=== PATIENT | female | born 1940 | race Caucasian/White ===

== ENCOUNTER 2018-12-15 22:36 | Emergency (ER) | payer OTHER ==
--- NOTE | 2018-12-15 22:43 | EDPHY ---
H & P Time Seen by Provider: 12/15/18 22:43 HPI/ROS: HPI CHIEF COMPLAINT: Right Nare epistaxis HISTORY OF PRESENT ILLNESS: Otherwise healthy 78-year-old female she presents emergency room epistaxis. This started 2-3 hours ago. She started having nose bleed due to digital trauma. Unable to get her nosebleed stopped. She is not on any anticoagulation. Denies any significant complaints. Past Medical History: Denies significant medical history Past Surgical History: Denies significant surgical history Social History: Denies daily use of drugs alcohol tobacco. Family History: Noncontributory ROS REVIEW OF SYSTEMS: 10 Systems were reviewed and negative with the exception of the elements mentioned in the history of present illness. Exam Constitutional triage nursing summary reviewed, vital signs reviewed, awake/ alert. Eyes normal conjunctivae and sclera, EOMI, PERRLA. HENT right Nare: Anterior nose bleed present. Venous. Left nare minimal dry blood. Posterior pharynx unremarkable. normal inspection, atraumatic, moist mucus membranes, no epistaxis, neck supple/ no meningismus, no raccoon eyes. Respiratory clear to auscultation bilaterally, normal breath sounds, no respiratory distress, no wheezing. Cardiovascular rate normal, regular rhythm, no murmur, no edema, distal pulses normal. Gastrointestinal soft, non-tender, no rebound, no guarding, normal bowel sounds, no distension, no pulsatile mass. Genitourinary no CVA tenderness. Musculoskeletal no midline vertebral tenderness, full range of motion, no calf swelling, no tenderness of extremities, no meningismus, good pulses, neurovascularly intact. Skin pink, warm, & dry, no rash, skin atraumatic. Neurologic awake, alert and oriented x 3, AAOx3, moves all 4 extremities equally, motor intact, sensory intact, CN II-XII intact, normal cerebellar, normal vision, normal speech. Psychiatric normal mood/affect. Heme/Lymph/Immune no lymphadenopathy. Differential Diagnosis: Includes but is not limited to in a particular order epistaxis, anterior epistaxis, posterior epistaxis, digital trauma causing epistaxis Medical Decision Making: Plan for this patient she was picking her nose earlier this evening and developed a nose bleed. She was unable to get this to stop and presents emergency room plan for Afrin and direct pressure. Re-evaluation: 2347: Afrin was applied 2 squirts to the right Maloney and 2 squirts the left Maloney. Nasal clamp was applied for another 30 min and she has good hemostasis without any significant bleeding at this time. Patient like to go home. The nasal clamp is often we are observing her she has no further bleeding at this time. We discussed return precautions She had an anterior nose bleed here. I do recommend she follows up with ENT. Source: Patient - Medical/Surgical History Hx Asthma: No Hx Chronic Respiratory Disease: No Hx Diabetes: No Hx Cardiac Disease: No Hx Renal Disease: No Hx Cirrhosis: No Hx Alcoholism: No Hx HIV/AIDS: No Hx Splenectomy or Spleen Trauma: No - Social History Smoking Status: Never smoked Constitutional: Initial Vital Signs Temperature (C) 36.6 C 12/15/18 22:43 Heart Rate 91 12/15/18 22:43 Respiratory Rate 18 12/15/18 22:43 Blood Pressure 166/90 H 12/15/18 22:43 O2 Sat (%) 95 12/15/18 22:43 O2 Delivery Mode Room Air Allergies/Adverse Reactions: No Known Allergies Allergy (Unverified 03/11/13 03:28) Home Medications: Medication Instructions Recorded NK [No Known Home Meds] 12/15/18 Medical Decision Making - Data Points Medications Given: Discontinued Medications Oxymetazoline HCl (Afrin Nasal [place]) 2 sprays EACHNARE EDNOW ONE Stop: 12/15/18 22:48 Last Admin: 12/15/18 22:47 Dose: 2 sprays Departure - Departure Disposition: Home, Routine, Self-Care Clinical Impression: Epistaxis Condition: Good Instructions: Nosebleed (ED) Additional Instructions: 1. Direct pressure if you have a recurrence of bleeding. 2. Direct pressure with head tilt 4 for 30 min 3. Afrin. 4. Follow up with ENT. 5. Return to the emergency room if worsening symptoms. Referrals: Preethi Reich MD [Primary Care Provider] - As per Instructions Mnauelito Gong MD [Medical Doctor] - As per Instructions
[2018-12-15] MEDS ORDERED: OXYMETAZOLINE 30 ML NASAL SPRAY ONE (22:44)
[2018-12-15] MEDS ORDERED: OXYMETAZOLINE 30 ML NASAL SPRAY EACHNARE ONE (22:47)
[2018-12-16 00:24] VITALS: BP 124/80
== END 2018-12-16 00:19 | disposition home or self-care (01) ==
DX: R04.0 Epistaxis (principal)